=== PATIENT | male | born 1955 | race Caucasian/White ===

== ENCOUNTER 2019-07-26 14:50 | Inpatient (IN) | payer BC ==
[~2019-07-26] VITALS: Ht 175.2 cm; Wt 81.8 kg
[2019-07-26 15:07] LABS: BASOPHILS % (AUTO) 0 % (0-10); EOSINOPHILS # (AUTO) 0.2 10^3/uL (0.0-0.3); EOSINOPHILS % (AUTO) 2 % (0-10); HEMATOCRIT 47 % (40-54); HEMOGLOBIN 16.3 G/DL (13.3-17.7); LYMPHOCYTES # (AUTO) 1.8 X 10^3 (1.0-4.0); LYMPHOCYTES % (AUTO) 20 % (12-44); MEAN CORPUSCULAR HEMOGLOBIN 31 PG (25-34); MEAN CORPUSCULAR HGB CONC 35 G/DL (32-36); MEAN CORPUSCULAR VOLUME 89 FL (80-99); MEAN PLATELET VOLUME 11.2 FL (7.4-10.4); MONOCYTES # (AUTO) 0.5 X 10^3 (0.0-1.0); MONOCYTES % (AUTO) 6 % (0-12); NEUTROPHILS # (AUTO) 6.3 X 10^3 (1.8-7.8); NEUTROPHILS % (AUTO) 72 % (42-75); PLATELET COUNT 221 10^3/uL (130-400); RED CELL DISTRIBUTION WIDTH 13.6 % (10.0-14.5); WHITE BLOOD COUNT 8.8 10^3/uL (4.3-11.0)
[2019-07-26] MEDS ORDERED: ASPIRIN 81 MG CHEW (CHILDREN'S ASA) PO ONE (15:15)
[2019-07-26 15:22] LABS: PROTHROMBIN TIME PATIENT 13.4 SEC (12.2-14.7)
[2019-07-26] MEDS ORDERED: [UNRECOGNIZED DRUG - OTHER] (15:26)
[2019-07-26] MEDS ORDERED: PEPSID (15:26)
[2019-07-26 15:28] LABS: ALANINE AMINOTRANSFERASE 20 U/L (0-55); ALBUMIN 4.6 GM/DL (3.2-4.5); ALKALINE PHOSPHATASE 84 U/L (40-136); BILIRUBIN,TOTAL 0.9 MG/DL (0.1-1.0); BUN/CREATININE RATIO 19; CALCIUM 9.1 MG/DL (8.5-10.1); CARBON DIOXIDE 24 MMOL/L (21-32); CHLORIDE 108 MMOL/L (98-107); CREATININE SERUM 1.21 MG/DL (0.60-1.30); GFR ESTIMATED > 60; GLUCOSE 103 MG/DL (70-105); MAGNESIUM 2.3 MG/DL (1.6-2.4); POTASSIUM 3.9 MMOL/L (3.6-5.0); SODIUM 141 MMOL/L (135-145); TOTAL PROTEIN 7.8 GM/DL (6.4-8.2)
--- NOTE | 2019-07-26 15:36 | ED Chest Pain ---
General Chief Complaint: Chest Pain Stated Complaint: CHEST PAIN Nursing Triage Note: TO ED PER W/C C/O CHEST PAIN FOR 1 WEEK. ON ADMIT PATIENT REPORTS THAT HAD UPPER GI DONE YESTERDAY IN [place] IS SCHEDULED TO HAVE A GALLBLADDER SONO AND OTHER TEST IN 2 WEEKS. REPORTS WAS EATING BREAKFAST AND PAIN BECAME WORSE. Nursing Sepsis Screen: No Definite Risk Source: patient Exam Limitations: no limitations History of Present Illness Date Seen by Provider: Jul 26, 2019 Time Seen by Provider: 15:33 Initial Comments To ER with left-sided chest pain intermittent for a couple of months. Over the past couple of weeks he has started to have this evaluated by his primary care provider JALIL Rodriguez out of [facility]. He followed with Dr. Garner from gastroenterology yesterday and had upper GI done. There was an ulcer seen at the gastroesophageal junction. He was placed on Pepcid twice a day and chronically on Nexium. History of esophageal dilatations for strictures in the past. This chest pain he describes it comes about with activity after he has eaten, lasts for about 10 minutes and subsides with rest. The pain only comes about if his activity (walking from the house down the block to feed the horses) follows eating. If he does the activity first and then eats he has no chest discomfort. The only consistently alleviating factor is rest. He is a nonsmoker, not diabetic, not obese, no personal history of heart disease, does have a history of high cholesterol many years ago. He has an appointment with Dr. Bhat August 07. At the time of arrival to ER he is pain-free Timing/Duration: intermittent Severity/Quality: moderate Location: central Activities at Onset: activity (activity after eating) Prior CP/Workup: no prior cardiac workup Modifying Factors: worse with eating ASA po HEAD GROWER: Yes NTG SL HEAD GROWER: No Associated Symptoms: No shortness of breath Allergies and Home Medications Allergies Coded Allergies: Penicillins (Verified Allergy, Unknown, 07/26/19) Ualqrgg-Apg-Orq Reductase Inhibitor (Verified Allergy, Unknown, 07/26/19) tetanus and diphtheria toxoids (Verified Allergy, Unknown, 07/26/19) Patient Home Medication List Home Medication List Reviewed: Yes Review of Systems Review of Systems Constitutional: see HPI EENTM: No Symptoms Reported Respiratory: No Symptoms Reported Cardiovascular: See HPI Gastrointestinal: See HPI, Abdominal Pain Genitourinary: No Symptoms Reported Musculoskeletal: no symptoms reported Skin: no symptoms reported Psychiatric/Neurological: No Symptoms Reported Endocrine: No Symptoms Reported Hematologic/Lymphatic: No Symptoms Reported Past Lmszfzk-Obitpc-Qiqwfq Hx Patient Social History Alcohol Use: Denies Use Recreational Drug Use: No Smoking Status: Never a Smoker Recent Foreign Travel: No Contact w/Someone Who Travel: No Recent Infectious Disease Expo: No Past Medical History Surgeries: Yes Abdominal Respiratory: No Cardiac: Yes High Cholesterol Neurological: No Genitourinary: No Gastrointestinal: No Musculoskeletal: No Endocrine: No HEENT: No Cancer: No Psychosocial: No Physical Exam Vital Signs Vital Signs - First Documented 07/26/19 14:50 Temp 36.8 Pulse 63 Resp 18 B/P (MAP) 166/95 (118) Pulse Ox 98 Capillary Refill : Less Than 3 Seconds Height, Weight, BMI Height: '" Weight: lbs. oz. kg; 26.00 BMI Method: General Appearance: No Apparent Distress, WD/WN HEENT: PERRL/EOMI, TMs Normal Neck: Full Range of Motion, Normal Inspection Respiratory: Normal Breath Sounds, No Accessory Muscle Use, No Respiratory Distress Cardiovascular: Regular Rate, Rhythm, Normal Peripheral Pulses Gastrointestinal: Non Tender, Soft Neurologic/Psychiatric: Alert, Oriented x3 Skin: Normal Color, Warm/Dry Progress/Results/Core Measures Results/Orders Lab Results Laboratory Tests Test 07/26/19 14:57 Range/Units White Blood Count 8.8 4.3-11.0 10^3/uL Red Blood Count 5.31 4.35-5.85 10^6/uL Hemoglobin 16.3 13.3-17.7 G/DL Hematocrit 47 40-54 % Mean Corpuscular Volume 89 80-99 FL Mean Corpuscular Hemoglobin 31 25-34 PG Mean Corpuscular Hemoglobin Concent 35 32-36 G/DL Red Cell Distribution Width 13.6 10.0-14.5 % Platelet Count 221 130-400 10^3/uL Mean Platelet Volume 11.2 H 7.4-10.4 FL Neutrophils (%) (Auto) 72 42-75 % Lymphocytes (%) (Auto) 20 12-44 % Monocytes (%) (Auto) 6 0-12 % Eosinophils (%) (Auto) 2 0-10 % Basophils (%) (Auto) 0 0-10 % Neutrophils # (Auto) 6.3 1.8-7.8 X 10^3 Lymphocytes # (Auto) 1.8 1.0-4.0 X 10^3 Monocytes # (Auto) 0.5 0.0-1.0 X 10^3 Eosinophils # (Auto) 0.2 0.0-0.3 10^3/uL Basophils # (Auto) 0.0 0.0-0.1 10^3/uL Prothrombin Time 13.4 12.2-14.7 SEC INR Comment 1.0 0.8-1.4 Activated Partial Thromboplast Time 32 24-35 SEC Sodium Level 141 135-145 MMOL/L Potassium Level 3.9 3.6-5.0 MMOL/L Chloride Level 108 H 98-107 MMOL/L Carbon Dioxide Level 24 21-32 MMOL/L Anion Gap 9 5-14 MMOL/L Blood Urea Nitrogen 23 H 7-18 MG/DL Creatinine 1.21 0.60-1.30 MG/DL Estimat Glomerular Filtration Rate > 60 BUN/Creatinine Ratio 19 Glucose Level 103 70-105 MG/DL Calcium Level 9.1 8.5-10.1 MG/DL Corrected Calcium 8.5-10.1 MG/DL Magnesium Level 2.3 1.6-2.4 MG/DL Total Bilirubin 0.9 0.1-1.0 MG/DL Aspartate Amino Transf (AST/SGOT) 21 5-34 U/L Alanine Aminotransferase (ALT/SGPT) 20 0-55 U/L Alkaline Phosphatase 84 40-136 U/L Myoglobin 67.0 10.0-92.0 NG/ML Troponin I 0.052 H <0.028 NG/ML Total Protein 7.8 6.4-8.2 GM/DL Albumin 4.6 H 3.2-4.5 GM/DL Lipase 46 8-78 U/L My Orders Orders - JAMIE MELLO APRN Lipase (07/26/19 15:09) Aspirin Chewable Tablet (Baby Aspirin Ch (07/26/19 15:15) Vital Signs/I&O 07/26/19 14:50 Temp 36.8 Pulse 63 Resp 18 B/P (MAP) 166/95 (118) Pulse Ox 98 Blood Pressure Mean: 118 Departure Communication (Admissions) Time/Spoke to Admitting Phy: 15:[address] Lock, we'll admit consult cardiology. I then spoke with Dr. Bhat agrees to admit, nothing by mouth status, cardiac catheterization in the morning, Lovenox in the meantime. Given his stomach ulcer IlL do Protonix twice a day as well. Impression Primary Impression: NSTEMI (non-ST elevated myocardial infarction) Additional Impression: Unstable angina Disposition: ADMITTED INPATIENT Condition: Stable Admissions Decision to Admit Reason: Admit from ER (General) Decision to Admit/Date: Jul 26, 2019 Time/Decision to Admit Time: 15:48 Departure-Patient Inst. Referrals: NO,LOCAL PHYSICIAN (PCP/Family) Primary Care Physician JAMIE MELLO APRN Jul 26, 2019 15:36
--- NOTE | 2019-07-26 15:46 | NUR ---
PATIENT TOOK BABY ASPRIN MACHINE LEAD BURNER TO ED
--- NOTE | 2019-07-26 15:46 | Diagnostic Imaging Report ---
Indication: New onset chest pain. Comparison: None. Discussion: Single portable upright view of the chest was obtained. Normal heart size. No focal consolidation, pleural fluid or pneumothorax. No osseous abnormality. Impression: Negative portable chest. Dictated by: Dictated on workstation # [id number]
[2019-07-26] MEDS ORDERED: ENOXAPARIN 80 MG/0.8 ML (LOVENOX) SYR SC ONE (16:00)
[2019-07-26] MEDS ORDERED: POLYETHYLENE GLYCOL 17 GM (MIRALAX) PACK PO PRN (16:45)
[2019-07-26] MEDS ORDERED: CALCIUM CARBONATE 500 MG (TUMS) TAB.CHEW PO PRN (16:45)
[2019-07-26] MEDS ORDERED: BISACODYL 5 MG (DULCOLAX) TABLET PO PRN (16:45)
[2019-07-26] MEDS ORDERED: ONDANSETRON 4 MG (ZOFRAN) ORAL DISSOLVE TAB PO PRN (16:45)
[2019-07-26] MEDS ORDERED: ACETAMINOPHEN 325 MG TABLET PO PRN (16:45)
[2019-07-26] MEDS ORDERED: diphenhydrAMINE 25 MG TAB (BENADRYL) PO PRN (16:45)
[2019-07-26] MEDS ORDERED: ONDANSETRON 4 MG/2 ML (SDV) Z0FRAN IVP PRN (16:45)
[2019-07-26] MEDS ORDERED: ANTACID SUSP 30 ML UDC (MYLANTA) PO PRN (16:45)
[2019-07-26 17:19] VITALS: BP 157/97
[2019-07-26] MEDS ORDERED: hydrALAZINE (APESOLINE) 20 MG/ML VIAL IV PRN (18:15)
[2019-07-26] MEDS ORDERED: ENOXAPARIN 80 MG/0.8 ML (LOVENOX) SYR SC SCH (19:15)
--- NOTE | 2019-07-26 19:17 | History & Physical-Hospitalist ---
History of Present Illness HPI/Chief Complaint Antonio Tracy is a 63yoM who presented with chest pain. He recently underwent an upper endoscopy for epigastric pain and was found to have an ulcer. This pain was different. It was on the left side of his chest with radiation to the shoulder and arm. He denies radiation to the neck and jaw. He reports nausea and diaphoresis. He denies vomiting. He denies dyspnea. He says that the pain was worse after he ate a meal. Date Seen 07/26/19 Time Seen by a Provider: 16:00 Attending Physician Amber Cannon MD PCP No,Local Physician Referring Physician Date of Admission Jul 26, 2019 at 15:43 Home Medications & Allergies Home Medications Reviewed patient Home Medication Reconciliation performed by pharmacy medication reconciliations collection technician and/or nursing. Patients Allergies have been reviewed. Allergies Allergies Coded Allergies Penicillins (Verified Allergy, Unknown, 07/26/19) Phfcxza-Lnq-Qft Reductase Inhibitor (Verified Allergy, Unknown, 07/26/19) tetanus and diphtheria toxoids (Verified Allergy, Unknown, 07/26/19) Past Hbwhaxx-Cygonp-Ciofmb Hx Past Med/Social Hx: Reviewed Nursing Past Med/Soc Hx Patient Social History Alcohol Use: Denies Use Recreational Drug Use: No Smoking Status: Never a Smoker Recent Foreign Travel: No Contact w/other who traveled: No Recent Infectious Disease Expo: No Past Medical History Surgeries: Abdominal Cardiac: High Cholesterol Gastrointestinal: Ulcer Review of Systems Constitutional: diaphoresis EENTM: no symptoms reported Respiratory: no symptoms reported Cardiovascular: chest pain Gastrointestinal: heartburn Genitourinary: no symptoms reported Musculoskeletal: no symptoms reported Skin: no symptoms reported Psychiatric/Neurological: No Symptoms Reported Physical Exam Physical Exam Vital Signs Vital Signs - First Documented 07/26/19 07/26/19 14:50 16:38 Temp 36.8 Pulse 63 Resp 18 B/P (MAP) 166/95 (118) Pulse Ox 98 O2 Delivery Room Air Capillary Refill : Less Than 3 Seconds Height, Weight, BMI Height: '" Weight: lbs. oz. kg; 26.64 BMI Method: General Appearance: No Apparent Distress, WD/WN HEENT: PERRL/EOMI, Pharynx Normal Neck: Normal Inspection, Supple Respiratory: Chest Non Tender, Lungs Clear, Normal Breath Sounds, No Respiratory Distress Cardiovascular: Regular Rate, Rhythm, No Edema, No Murmur Gastrointestinal: Normal Bowel Sounds, Non Tender, Soft Extremity: Normal Inspection, Non Tender, No Pedal Edema Neurologic/Psychiatric: Alert, Oriented x3 Skin: Normal Color, Warm/Dry Lymphatic: No Adenopathy Results Results/Procedures Labs Laboratory Tests 07/26/19 14:57 Patient resulted labs reviewed. Imaging: Reviewed Imaging Report Assessment/Plan Admission Diagnosis NSTEMI Admission Status: Inpatient Order (span 2 midnights) Reason for Inpatient Admission: Chest pain due to NSTEMI likely requiring cardiology intervention Assessment and Plan NSTEMI -Troponin mildly elevated on arrival -EKG reportedly showing some ST depressions in the anterior leads -Continue to trend -Given ASA and Lovenox -Continue ASA daily -Continue Lovenox -Cardiology consulted, appreciate recommendations -NPO at midnight for possible procedure tomorrow -Statin allergy listed GERD Esophageal ulcer -Transition to PPI Diagnosis/Problems Diagnosis/Problems (1) NSTEMI (non-ST elevated myocardial infarction) Status: Acute Clinical Quality Measures AMI/AHF: ASA po Prior to arrival: Yes DVT/VTE Risk/Contraindication: Risk Factor Score Per Nursin RFS Level Per Nursing on Admit: 2=Moderate AMBER CANNON MD Jul 26, 2019 19:17
[2019-07-26 20:00] VITALS: BP 147/99
[2019-07-26] MEDS ORDERED: morphine INJ 4 MG/ML 1 ML (VIAL/SYRINGE) IV PRN (20:45)
[2019-07-26] MEDS ORDERED: NITROGLYCERIN 0.4 MG SL TABS BTL 25'S SL PRN (20:45)
[2019-07-26] MEDS ORDERED: PANTOPRAZOLE 40 MG (PROTONIX) TAB PO SCH (21:00)
[2019-07-26] MEDS ORDERED: FAMOTIDINE 20 MG (PEPCID) TABLET PO SCH (21:00)
[2019-07-26] MEDS: PANTOPRAZOLE 40 MG (PROTONIX) VIAL IV SCH (21:06)
[2019-07-26] MEDS: DOCUSATE SODIUM 100 MG (COLACE) CAP PO SCH (21:06)
[2019-07-26] MEDS: SENNA W/DOCUSATE (SENOKOT S) TABLET PO SCH (21:07)
[2019-07-26] MEDS: NS IV 1000 ML 1,000 ML IV SCH (21:07)
[2019-07-27] VITALS (10 sets, daily range): BP systolic 132–195; BP diastolic 79–114
[2019-07-27 03:25] LABS: BASOPHILS % (AUTO) 1 % (0-10); EOSINOPHILS # (AUTO) 0.4 10^3/uL (0.0-0.3); EOSINOPHILS % (AUTO) 5 % (0-10); HEMATOCRIT 42 % (40-54); HEMOGLOBIN 14.2 G/DL (13.3-17.7); LYMPHOCYTES # (AUTO) 2.4 X 10^3 (1.0-4.0); LYMPHOCYTES % (AUTO) 31 % (12-44); MEAN CORPUSCULAR HEMOGLOBIN 30 PG (25-34); MEAN CORPUSCULAR HGB CONC 34 G/DL (32-36); MEAN CORPUSCULAR VOLUME 89 FL (80-99); MEAN PLATELET VOLUME 11.2 FL (7.4-10.4); MONOCYTES # (AUTO) 0.7 X 10^3 (0.0-1.0); MONOCYTES % (AUTO) 10 % (0-12); NEUTROPHILS % (AUTO) 53 % (42-75); PLATELET COUNT 221 10^3/uL (130-400); RED CELL DISTRIBUTION WIDTH 13.8 % (10.0-14.5); WHITE BLOOD COUNT 7.5 10^3/uL (4.3-11.0)
[2019-07-27 03:45] LABS: ALANINE AMINOTRANSFERASE 17 U/L (0-55); ALBUMIN 3.6 GM/DL (3.2-4.5); ALKALINE PHOSPHATASE 51 U/L (40-136); BILIRUBIN,TOTAL 0.7 MG/DL (0.1-1.0); BUN/CREATININE RATIO 19; CALCIUM 8.5 MG/DL (8.5-10.1); CARBON DIOXIDE 22 MMOL/L (21-32); CHLORIDE 110 MMOL/L (98-107); CREATININE SERUM 0.98 MG/DL (0.60-1.30); GFR ESTIMATED > 60; GLUCOSE 87 MG/DL (70-105); POTASSIUM 3.8 MMOL/L (3.6-5.0); SODIUM 142 MMOL/L (135-145)
[2019-07-27 03:46] LABS: CHOLESTEROL 169 MG/DL (< 200); HDL CHOLESTEROL 39 MG/DL (40-60); TRIGLYCERIDES 71 MG/DL (<150); VLDL CHOLESTEROL 14 MG/DL (5-40)
[2019-07-27] MEDS ORDERED: ENOXAPARIN 80 MG/0.8 ML (LOVENOX) SYR SC SCH ×2 (04:00)
[2019-07-27] MEDS: NS IV 1000 ML 1,000 ML IV SCH ×3 (05:07→19:20)
--- NOTE | 2019-07-27 07:18 | Consultation-Cardiology ---
HPI-Cardiology Cardiology Consultation Date of Consultation 07/27/19 Date of Admission Time Seen by Provider: 07:14 Indication: Chest pain HPI 63 years old gentleman with no significant past medical history, has been having recurrent episodes of chest pain described it as dull achiness in the lower retrosternal area radiating to the left side of his chest associated with diaphoresis and nausea has been waxing and waning for about a year, recently became slightly worse, underwent EGD with Dr. Garner on Sunday, July 25, 2019 and diagnosed with peptic ulcer disease, yesterday started to have chest pain he described it as different than the usual pain, was more intense. Came into the emergency room and by the time he arrived to the emergency room and was feeling better, he had ST depression, currently he is chest pain-free, had elevation in troponin. Has strong family history of heart disease does not take any medication other than the gdbv-iep-hzybhge Protonix Home Medications & Allergies Allergies: Coded Allergies: Penicillins (Verified Allergy, Unknown, 07/26/19) Ofqtpre-Umh-Qsn Reductase Inhibitor (Verified Allergy, Unknown, 07/26/19) tetanus and diphtheria toxoids (Verified Allergy, Unknown, 07/26/19) Home Medication List Reviewed: Yes SAR-Stbagn-Qxvngg Hx Patient Social History Marital Status: Employed/Student: employed Alcohol Use: Denies Use Recreational Drug Use: No Smoking Status: Never a Smoker Recent Foreign Travel: No Recent Infectious Disease Expo: No Past Medical History Peptic ulcer Family Medical History Family Medical Hx Father had heart attack and in his 60s Review of Systems-General Review of Systems Constitutional: see HPI, diaphoresis EENTM: see HPI, no symptoms reported Respiratory: no symptoms reported, see HPI Cardiovascular: see HPI, chest pain; No edema, No Hx of Intervention, No palpitations, No syncope, No vascular heart diseas, No other Gastrointestinal: see HPI, heartburn, nausea Genitourinary: no symptoms reported, see HPI Musculoskeletal: no symptoms reported, see HPI Skin: no symptoms reported, see HPI Psychiatric/Neurological: No Symptoms Reported, See HPI Reviewed Test Results Reviewed Test Results Lab Laboratory Tests Test 07/26/19 14:57 07/26/19 21:00 07/27/19 02:55 Range/Units White Blood Count 8.8 7.5 4.3-11.0 10^3/uL Red Blood Count 5.31 4.73 4.35-5.85 10^6/uL Hemoglobin 16.3 14.2 13.3-17.7 G/DL Hematocrit 47 42 40-54 % Mean Corpuscular Volume 89 89 80-99 FL Mean Corpuscular Hemoglobin 31 30 25-34 PG Mean Corpuscular Hemoglobin Concent 35 34 32-36 G/DL Red Cell Distribution Width 13.6 13.8 10.0-14.5 % Platelet Count 221 221 130-400 10^3/uL Mean Platelet Volume 11.2 H 11.2 H 7.4-10.4 FL Neutrophils (%) (Auto) 72 53 42-75 % Lymphocytes (%) (Auto) 20 31 12-44 % Monocytes (%) (Auto) 6 10 0-12 % Eosinophils (%) (Auto) 2 5 0-10 % Basophils (%) (Auto) 0 1 0-10 % Neutrophils # (Auto) 6.3 4.0 1.8-7.8 X 10^3 Lymphocytes # (Auto) 1.8 2.4 1.0-4.0 X 10^3 Monocytes # (Auto) 0.5 0.7 0.0-1.0 X 10^3 Eosinophils # (Auto) 0.2 0.4 H 0.0-0.3 10^3/uL Basophils # (Auto) 0.0 0.0 0.0-0.1 10^3/uL Prothrombin Time 13.4 12.2-14.7 SEC INR Comment 1.0 0.8-1.4 Activated Partial Thromboplast Time 32 24-35 SEC Sodium Level 141 142 135-145 MMOL/L Potassium Level 3.9 3.8 3.6-5.0 MMOL/L Chloride Level 108 H 110 H 98-107 MMOL/L Carbon Dioxide Level 24 22 21-32 MMOL/L Anion Gap 9 10 5-14 MMOL/L Blood Urea Nitrogen 23 H 19 H 7-18 MG/DL Creatinine 1.21 0.98 0.60-1.30 MG/DL Estimat Glomerular Filtration Rate > 60 > 60 BUN/Creatinine Ratio 19 19 Glucose Level 103 87 70-105 MG/DL Calcium Level 9.1 8.5 8.5-10.1 MG/DL Corrected Calcium 8.8 8.5-10.1 MG/DL Magnesium Level 2.3 1.6-2.4 MG/DL Total Bilirubin 0.9 0.7 0.1-1.0 MG/DL Aspartate Amino Transf (AST/SGOT) 21 16 5-34 U/L Alanine Aminotransferase (ALT/SGPT) 20 17 0-55 U/L Alkaline Phosphatase 84 51 40-136 U/L Myoglobin 67.0 10.0-92.0 NG/ML Troponin I 0.052 H 0.252 H 0.456 *H <0.028 NG/ML Total Protein 7.8 6.0 L 6.4-8.2 GM/DL Albumin 4.6 H 3.6 3.2-4.5 GM/DL Lipase 46 8-78 U/L Triglycerides Level 71 <150 MG/DL Cholesterol Level 169 < 200 MG/DL LDL Cholesterol Direct 131 H 1-129 MG/DL VLDL Cholesterol 14 5-40 MG/DL HDL Cholesterol 39 L 40-60 MG/DL Physical Exam Physical Exam Vital Signs Vital Signs - First Documented 07/26/19 07/26/19 14:50 16:38 Temp 36.8 Pulse 63 Resp 18 B/P (MAP) 166/95 (118) Pulse Ox 98 O2 Delivery Room Air Capillary Refill : Less Than 3 Seconds Height, Weight, BMI Height: '" Weight: lbs. oz. kg; 26.64 BMI Method: General Appearance: No Apparent Distress, WD/WN Eyes: Bilateral Eye Normal Inspection, Bilateral Eye PERRL, Bilateral Eye EOMI HEENT: PERRL/EOMI, TMs Normal, Pharynx Normal Neck: Normal Inspection, Supple Respiratory: Chest Non Tender, Lungs Clear, Normal Breath Sounds, No Respiratory Distress Cardiovascular: Regular Rate, Rhythm, No Edema, No Gallop, No JVD, No Murmur Gastrointestinal: Normal Bowel Sounds, Non Tender, Soft Back: Normal Inspection, No CVA Tenderness, No Vertebral Tenderness Extremity: Normal Inspection, Non Tender, No Pedal Edema Neurologic/Psychiatric: Alert, Oriented x3 Skin: Normal Color, Warm/Dry Lymphatic: No Adenopathy A/P-Cardiology Admission Diagnosis Non-ST elevation myocardial infarction Coronary artery disease Hypertension Hyperlipidemia Peptic ulcer disease Assessment/Plan Non-ST elevation myocardial infarction, patient had elevation in troponin level, it's a depression in the anterolateral lead, he is currently chest pain-free, I discussed with him the management plan recommended cardiac catheterization poss ible PTCA. Hypertension, patient does not have history of hypertension, I'll start him on low-dose beta blockers Hyperlipidemia, LDL 131, I will start him on statin Peptic ulcer disease, had endoscopy on July 25, [address] Garner and diagnosed with active ulcer, has been started on Protonix and Pepcid Strong family history of heart disease with father had heart attack in his 60s Clinical Quality Measures AMI/AHF: ASA po Prior to arrival: Yes DVT/VTE Risk/Contraindication: Risk Factor Score Per Nursin RFS Level Per Nursing on Admit: 2=Moderate SANAZ ALEXANDER MD Jul 27, 2019 07:18
--- NOTE | 2019-07-27 07:19 | Cardiac Procedure Note-CS/ASA ---
Pre-Procedure Note Pre-Op Procedure Note H&P Reviewed The H&P was reviewed, patient examined and no changes noted. Date H&P Reviewed: Jul 27, 2019 Time H&P Reviewed: 07:19 Conscious Sedation Pre-Proced Time 07:19 ASA Score 3 For ASA 3 and 4: Consider anesthesia and medical clearance. Also, for patients with a history of failed moderate sedation consider anesthesia. Airway Lungs Heart ASA score ASA 1: a normal healthy patient ASA 2: a patient with a mild systemic disease (mid diabetes, controlled hypertension, obesity x ASA 3: a patient with a severe systemic disease that limits activity (angina, COPD, prior Myocardial infarction) ASA 4: a patient with an incapacitating disease that is a constant threat to life (CHF, renal failure) ASA 5: a moribund patient not expected to survive 24 hrs. (ruptured aneurysm) ASA 6: a declared brain- patient whose organs are being harvested. For emergent operations, add the letter E after the classification Mallampati Classification Grade 3 Sedation Plan Analgesia, Amnesia, Plan communicated to team members, Discussed options with patient/fam, Discussed risks with patient/fam The patient is an appropriate candidate to undergo the planned procedure, sedation, and anesthesia. The patient immediately re-assessed prior to indication. SANAZ ALEXANDER MD Jul 27, 2019 07:19
[2019-07-27] MEDS ORDERED: NS IV 1000 ML 1,000 ML IV SCH (07:30)
[2019-07-27] MEDS: DOCUSATE SODIUM 100 MG (COLACE) CAP PO SCH (07:34)
[2019-07-27] MEDS: SENNA W/DOCUSATE (SENOKOT S) TABLET PO SCH (07:34)
[2019-07-27] MEDS: PANTOPRAZOLE 40 MG (PROTONIX) VIAL IV SCH (07:45)
[2019-07-27] MEDS ORDERED: ASPIRIN E.C. 81 MG (ECOTRIN) TAB PO SCH (09:00)
[2019-07-27] MEDS ORDERED: MIDAZOLAM 5 MG/5 ML (VERSED) VIAL ONE (09:36)
[2019-07-27] MEDS ORDERED: NS IV 1000 ML 0 ML ONE (09:36)
[2019-07-27] MEDS ORDERED: fentaNYL INJECTION 100 MCG/2 ML AMP ONE (09:36)
[2019-07-27] MEDS ORDERED: LIDOCAINE 1% INJ 20 ML 20 ML VIAL ONE (09:36)
[2019-07-27] MEDS ORDERED: HEParin (CATH LAB) 2,000 ML IV ONE (09:37)
[2019-07-27] MEDS ORDERED: PATIENT MAY USE OWN MEDS, ALL PO SCH (11:00)
--- NOTE | 2019-07-27 11:10 | Cardiac Cath Report ---
Cardiac Cath Report Physician (s)/Book Cleaner (s) Physician SANAZ ALEXANDER MD Pre-Procedure Diagnosis Pre-Procedure Diagnosis: NSTMI Post-Procedure Note Procedure Start Date: Jul 27, 2019 Name of Procedure: Left heart catheterization Aortic Arch angiogram Findings/Procedure Note PROCEDURE NOTE: 63 years old gentleman with no significant past history, admitted with acute chest pain and ST depression in the anterolateral leads, had mildly elevated troponin, decided to proceed with cardiac catheterization possible PTCA After explaining the procedure to the patient, all pros and cons were explained, all questions were answered. The patient signed the consent and then he was placed on the cardiac catheterization laboratory. Groin was prepped SL fashion local anesthesia was used. Sheath placed in the right femoral artery, had signif icant tortuosity in the iliac artery, nonobstructive disease, FL 4 and 4.5 did not access the left main, AL-1 was successful in acquiring subselective images of the left coronary system that has posterior origin then over long J-wire the Bebe right was used accident) tendon pigtail catheter advanced to the left ventricular cavity and pigtail was placed in the aortic root and aortic root angiogram was done At the end of the procedure the sheath was removed. Closure device was used FINDINGS: Hemodynamics LV 110/8, end-diastolic pressure of 8 Aorta 133/74 mean of 88 ANATOMY: Left Main is free of obstructive disease with posterior origin Left Anterior Descending has severe mid LAD stenosis Left Circumflex is moderate in size with severe second obtuse marginal artery stenosis Right Coronory Artery is dominant artery with severe stenosis at the midportion/subtotal occlusion with slow flow in the right system LV Gram showed the left ventricle is normal in size with preserved systolic function estimated ejection fraction 60 percent Aorta evaluation done with aortic root angiogram which showed slightly prominent aortic root, no dissection or aneurysm, mild aortic regurgitation CONCLUSION: 1. Severe multivessel coronary artery disease including subtotal occlusion at the mid LAD, severe stenosis at the second obtuse marginal branch and subtotal occlusion at the mid dominant right with severe disease at the bifurcation of the right coronary artery 2. Normal left ventricular size with preserved systolic function estimated ejection fraction 60 percent 3. Slightly prominent aortic root and ascending aorta, no dissection or aneurysm. DISCUSSION AND RECOMMENDATION: patient will be transferred for evaluation for bypass surgery Hospital course: Patient was hospitalized and monitored overnight, given Lovenox, I visited with him this morning and he was chest pain-free, discussed the management plan recommended cardiac catheterization which was carried out showing multivessel coronary artery disease, patient will be transferred for evaluation for CABG Final diagnosis Non-ST elevation myocardial infarction Coronary artery disease Hypertension Hyperlipidemia Anesthesia Type: Conscious Sedation Estimated blood loss (mL): 25 ml Contrast Amount: 92 ml Total Radiation Dose: 737 mGy Post-Procedure Diagnosis Post-operative diagnosis: NSTMI Coronary artery disease Hypertension Hyperlipidemia (1) NSTEMI (non-ST elevated myocardial infarction) SANAZ ALEXANDER MD Jul 27, 2019 11:10
[2019-07-27] MEDS ORDERED: ATOR80TA76 PO (11:16)
[2019-07-27] MEDS ORDERED: METO-387 PO (11:16)
[2019-07-27] MEDS ORDERED: PANT40VI IV (11:16)
[2019-07-27] MEDS ORDERED: ASPI-983 PO (11:16)
--- NOTE | 2019-07-27 11:17 | Discharge Inst-Post CATH ---
Discharge Inst-CATH/EP Problems Reviewed?: Yes Post Cardiac Cath/EP D/C Inst Follow Up/Plan Appointment with Dr. Bhat's office in 2-4 weeks <b>CARDIAC CATH/EP PROCEDURE DISCHARGE INSTRUCTIONS</b> ACTIVITY * Go Home directly and rest. * Limit activity of the leg (or wrist if it was used) for 7 days including aerobics, swimming, jogging, bicycling, etc. * Restrict stair-climbing for 7 days if possible, if not, climb up with your non-cath leg, then bring together on the same step. * Avoid lifting, pushing, pulling or excessive movement of the affected extremity for 7 days. * Customary sexual activity may be resumed after 2 days-use caution not to use a position that strains or causes pain to the affected extremity. * No driving for 24 hours. * NO SMOKING. * Avoid straining for bowel movements for 7 days. * Gentle walking on level ground is allowed. * Returning to work will depend on the type of procedure and the results. Your doctor will discuss this with you. CALL YOUR DOCTOR FOR ANY OF THE FOLLOWING: *If bleeding from the puncture site occurs- Apply gentle pressure to site with clean cloth and call your doctor or EMS. * If a knot or lump forms under the skin, increases in size, or causes pain. * If bruising appears to be worsening or moving further down your leg instead of disappearing. * Temperature above 101 F. CARE OF YOUR GROIN INCISION; * Bruising or purple discoloration of the skin near the puncture site is common. * You may shower only, no bathtub bathing for 5 days. Be careful to avoid slipping as your leg may feel stiff. * If a closure device was used on your femoral artery, please see the attached guide regarding care of the device and your leg. * Leave dressing on FOR 24 hours. CARE OF YOUR WRIST INCISION; * Bruising or purple discoloration of the skin near the puncture site is common. * You may shower. * DO NOT submerge wrist. * Leave dressing on FOR 24 hours. SANAZ BHAT MD Jul 27, 2019 11:17
[2019-07-27] MEDS ORDERED: meTOprolol 5 MG/5 ML (LOPRESSOR) VIAL IV ONE ×2 (12:30)
[2019-07-27] MEDS ORDERED: cloNIDine 0.1 MG (CATAPRES) TAB PO NR (12:59)
[2019-07-27] MEDS ORDERED: ENALAPRILAT 1.25 MG/1 ML (VASOTEC) 1 ML VIAL IV NR (13:02)
--- NOTE | 2019-07-27 14:55 | Progress Note - Hospitalist ---
Subjective HPI/CC On Admission Time Seen by Provider: 09:00 chest pain Subjective/Events-last exam He denies any chest pain. He denies dyspnea, nausea, vomiting, diaphoresis, abdominal pain, diarrhea. Objective Exam Vital Signs Vital Signs Date Time Temp Pulse Resp B/P (MAP) Pulse Ox O2 Delivery O2 Flow Rate FiO2 07/27/19 13:00 60 195/114 (141) 98 Room Air 07/27/19 07:30 36.7 07/27/19 04:19 16 Capillary Refill : Less Than 3 Seconds General Appearance: No Apparent Distress, WD/WN Respiratory: Lungs Clear, Normal Breath Sounds, No Respiratory Distress Cardiovascular: Regular Rate, Rhythm, No Edema, No Murmur Gastrointestinal: Normal Bowel Sounds, Non Tender, Soft Extremity: Normal Inspection, Non Tender, No Pedal Edema Neurologic/Psychiatric: Alert, Oriented x3, No Motor/Sensory Deficits, Normal Mood/Affect Skin: Normal Color, Warm/Dry Results/Procedures Lab Laboratory Tests 07/26/19 14:57 07/27/19 02:55 Patient resulted labs reviewed. Assessment/Plan Assessment and Plan Assess & Plan/Chief Complaint NSTEMI HTN -Troponin trended up overnight -EKG on arrival showed some ST depressions in the anterior leads -Cardiology consulted, appreciate recommendations -Left heart cath showed severe triple vessel disease -Continue ASA -Started on Metoprolol -Begin Lisinopril -Statin allergy listed -EDENILSON declined stating that his insurance is inactive and we are unable to contact [employer] on the weekend -Will attempt to sort out insurance issues Sunday GERD Esophageal ulcer -Continue PPI DVT Prophylaxis: Lovenox Diagnosis/Problems Diagnosis/Problems (1) NSTEMI (non-ST elevated myocardial infarction) Status: Acute (2) 3-vessel coronary artery disease Status: Acute (3) HTN (hypertension) Status: Acute Qualifiers: Hypertension type: essential hypertension Qualified Codes: I10 - Essential (primary) hypertension Clinical Quality Measures AMI/AHF: ASA po Prior to arrival: Yes DVT/VTE Risk/Contraindication: Risk Factor Score Per Nursin RFS Level Per Nursing on Admit: 2=Moderate EVA CANNON MD Jul 27, 2019 14:55
[2019-07-27] MEDS ORDERED: ENOXAPARIN 40 MG/0.4 ML (LOVENOX) SYR SC SCH (15:00)
[2019-07-27] MEDS ORDERED: lisINopril 10 MG (PRINIVIL) TABLET PO NR (15:17)
--- NOTE | 2019-07-27 18:51 | NUR ---
REPORT CALLED TO HERNAN ODONNELL AT [facility]IA [facility] IN [place] AT THIS TIME.
[2019-07-28] MEDS ORDERED: lisINopril 40 MG (PRINIVIL) TABLET PO SCH (09:00)
== END 2019-07-27 19:30 | disposition home or self-care (01) | DRG 281 ==
LOC: EDUNIT# 14:50 → ER 14:52 → ICU 15:43
PROVIDERS: ADMIT Internal Medicine; ATTEND Internal Medicine
PROC: 4A023N7 Measurement of Cardiac Sampling and Pressure, Left Heart, Percutaneous Approach (ICD-10-PCS; principal; 2019-07-27)
PROC: B2111ZZ Fluoroscopy of Multiple Coronary Arteries using Low Osmolar Contrast (ICD-10-PCS; 2019-07-27)
PROC: B2151ZZ Fluoroscopy of Left Heart using Low Osmolar Contrast (ICD-10-PCS; 2019-07-27)
PROC: B3101ZZ Fluoroscopy of Thoracic Aorta using Low Osmolar Contrast (ICD-10-PCS; 2019-07-27)
DX: I21.4 Non-ST elevation (NSTEMI) myocardial infarction (principal); K22.10 Ulcer of esophagus without bleeding; E78.00 Pure hypercholesterolemia, unspecified; K21.9 Gastro-esophageal reflux disease without esophagitis; I25.10 Atherosclerotic heart disease of native coronary artery without angina pectoris; E78.5 Hyperlipidemia, unspecified; I10 Essential (primary) hypertension
CPT/HCPCS: 36415; 71045; 80053; 80061; 83690; 83735; 83874; 84484; 85025; 85610; 85730; 93005; 93041; 93458; 93567; 96372

== ENCOUNTER 2019-10-20 08:07 | Outpatient (RCR) | payer BC ==
[~2019-10-20 08:07] MED LIST: ASPI-983 PO; ATOR80TA76 PO; MTP25TSR PO; PANT40VI IV; PEPSID; [UNRECOGNIZED DRUG - OTHER]
== END 2019-12-02 | disposition home or self-care (01) ==
LOC: CR 08:07
PROVIDERS: ATTEND Internal Medicine Cardiovascular Disease
DX: Z95.1 Presence of aortocoronary bypass graft (principal); Z98.890 Other specified postprocedural states
CPT/HCPCS: 93798

== ENCOUNTER → 2020-08-04 | Outpatient (CLI) | payer BC ==
[~2020-08-04] VITALS: Ht 175 cm; Wt 82.0 kg
[~2020-08-04] MED LIST changes: +ASPI-1238 PO; -ASPI-983 PO; +CATHETER FLUSH 10 ML SYR IV PRN
[2020-08-04 09:46] VITALS: BP 151/102
--- NOTE | 2020-08-09 10:47 | Cardiology Stress Test Report ---
Stress Test Report Date of Procedure/Referring: Date of Procedure: Aug 04, 2020 PCP Aubrie Wolff Admitting Physician Devorah Garcia MD Indications: Coronary artery disease Baseline Heart Rate: 70 Baseline Blood Pressure: Blood Pressure Systolic: 151 Blood Pressure Diastolic: 102 Vital Signs Date Time Temp Pulse Resp B/P (MAP) Pulse Ox O2 Delivery O2 Flow Rate FiO2 08/04/20 09:46 81 18 151/102 (118) 98 Room Air Baseline Vital Signs Vital Signs Date Time Temp Pulse Resp B/P (MAP) Pulse Ox O2 Delivery O2 Flow Rate FiO2 08/04/20 09:46 81 18 151/102 (118) 98 Room Air Baseline EKG: Baseline EKG: normal sinus rhythm Summary: After explaining the procedure and details to the patient, he signed the consent and was brought to the stress nuclear laboratory. Patient exercised on standard Nba protocol, EKG, heart rate and blood pressure were monitored continuously, resting and stress doses of radio tracer were injected, imaging was acquired and reviewed in the short axis, horizontal long axis and vertical long axis views Patient was able to exercise for a total of 9:30 minutes on Nba protocol, METs 11.1 Maximum heart rate 141 Maximum blood pressure 204/100 Stress EKG, [address] depression in 2,3, aVF, V4 and V5 Recovery EKG, Return to baseline TID: 1.01 SSS: 6 SDS: 4 EF: 55 Conclusion: 1. Excellent exercise tolerance for a total of 9 minutes 30 seconds on standard Nba protocol total of 11.1 METs achieving 89 percent of maximum expected heart rate 2. Severe hypertensive response to exercise with peak blood pressure 204/100 return to baseline during recovery 3. Nondiagnostic EKG changes with exercise returned to baseline during recovery 4. Diaphragmatic attenuation with mild decreased uptake involving the mid to apical inferolateral wall with mild reversibility, probably due to the diaphragmatic attenuation 5. Normal left ventricular size, normal contractibility, EF 55 percent SANAZ ALEXANDER MD Aug 09, 2020 10:47
== END ==
LOC: CARD 08:33
PROVIDERS: ATTEND Physician Assistant
DX: I25.10 Atherosclerotic heart disease of native coronary artery without angina pectoris (principal); K21.9 Gastro-esophageal reflux disease without esophagitis; I10 Essential (primary) hypertension; E78.2 Mixed hyperlipidemia
CPT/HCPCS: 78452; 93017; 93306; A9502

== ENCOUNTER → 2023-09-19 | Outpatient (CLI) | payer MEDICARE, OTHER ==
[~2023-09-19] MED LIST changes: -CATHETER FLUSH 10 ML SYR IV PRN
== END ==
LOC: CARD 07:33
PROVIDERS: ATTEND Internal Medicine Cardiovascular Disease
DX: I10 Essential (primary) hypertension (principal); I25.10 Atherosclerotic heart disease of native coronary artery without angina pectoris